=== PATIENT | female | born 1945 | race Caucasian/White ===

== ENCOUNTER 2017-12-04 16:11 | Emergency (ER) | payer SELFPAY ==
[2017-12-04 16:32] VITALS: BMI 34.0
[2017-12-04 16:37] VITALS: RESP 18; TEMP 99; O2SAT 99
--- NOTE | 2017-12-04 17:42 | ED PDOC ---
Arrival/HPI - General Chief Complaint: Eye Problem Time Seen by Provider: 12/04/17 17:10 Historian: Patient - History of Present Illness Narrative History of Present Illness (Text): 12/04/17 17:10 72 year old female visiting from [place], whose past medical history includes diabetes, diabetic retinopathy to both eyes, cataract surgery to both eyes and laser treatments, who presents to the emergency department due to sudden onset of vision loss to right eye at 15:30 today. Patient notes she saw blood dripping in the back of her eye. Patient states she cannot even see light at this time. Patient states she takes 2 eyedrops to control her eye pressures. Patient also notes taking Doxium for her eyes. Patient denies any fever, chills , chest pain, shortness of breath, nausea, vomiting, diarrhea, urinary symptoms , back pain, neck pain, headache, dizziness, or any other complaints. Time/Duration: 1-3 hours (sudden onset of loss of vision to right eye at 15:30 today) Symptom Onset: Sudden Symptom Course: Unchanged Activities at Onset: Light Past Medical History - Provider Review Nursing Documentation Reviewed: Yes - Infectious Disease Hx of Infectious Diseases: None - HEENT Hx HEENT Disorder: Yes Other/Comment: "bleeding in the eye" - Endocrine/Metabolic Hx Diabetes Mellitus Type 2: Yes - Psychiatric Hx Substance Use: No - Surgical History Other/Comment: multiple eye/laser surgery - Anesthesia Hx Anesthesia: Yes Hx Anesthesia Reactions: No Hx Malignant Hyperthermia: No Family/Social History - Physician Review Nursing Documentation Reviewed: Yes Family/Social History: No Known Family HX Smoking Status: Never Smoked Hx Alcohol Use: No Hx Substance Use: No Allergies/Home Meds Allergies/Adverse Reactions: Allergies No Known Allergies Allergy (Verified 12/04/17 16:28) Home Medications: Home Meds Medication Instructions Recorded Confirmed Home Med [Home Med] 1 cap PO DAILY 12/04/17 12/04/17 Home Med [Home Med] 40 unit SC BID 12/04/17 12/04/17 Review of Systems - Physician Review All systems were reviewed & negative as marked: Yes - Review of Systems Constitutional: Normal. absent: Fevers, Night Sweats Eyes: Vision Changes (Patient reports sudden loss of vision to right eye at 15: 30 today), Photophobia (patient notes she cannot see light at this time), Other (patient notes seeing blood dripping in back of eye). absent: Normal ENT: Normal Respiratory: Normal. absent: SOB Cardiovascular: Normal. absent: Chest Pain Gastrointestinal: Normal. absent: Diarrhea, Nausea, Vomiting Genitourinary Female: Normal. absent: Urine Output Changes Musculoskeletal: Normal. absent: Back Pain, Neck Pain Skin: Normal Neurological: Normal. absent: Headache, Dizziness Endocrine: Normal Hemo/Lymphatic: Normal Psychiatric: Normal Physical Exam Vital Signs Reviewed: Yes Vital Signs Temp Pulse Resp BP Pulse Ox 12/04/17 16:36 99 F 74 18 158/77 H 99 Temperature: Afebrile Blood Pressure: Hypertensive Pulse: Regular Respiratory Rate: Normal Appearance: Positive for: Well-Appearing, Non-Toxic Pain Distress: None Mental Status: Positive for: Alert and Oriented X 3 - Systems Exam Head: Present: Atraumatic, Normocephalic Pupils: Present: Other (visual acuity on right eye. Right eye: patient unable to see light. Left eye: grossly intact.). No: PERRL (Pupils for right eye: dilated, non-reactive to light, irregularly shaped. Pupil for left eye: reactive to light. ) Extroacular Muscles: Present: EOMI Conjunctiva: Present: Normal Mouth: Present: Moist Mucous Membranes Neck: Present: Normal Range of Motion Respiratory/Chest: Present: Clear to Auscultation, Good Air Exchange. No: Respiratory Distress, Accessory Muscle Use Cardiovascular: Present: Regular Rate and Rhythm, Normal S1, S2. No: Murmurs Abdomen: No: Tenderness, Distention, Peritoneal Signs Back: Present: Normal Inspection Upper Extremity: Present: Normal Inspection. No: Cyanosis, Edema Lower Extremity: Present: Normal Inspection. No: Edema Neurological: Present: GCS=15, CN II-XII Intact, Speech Normal Skin: Present: Warm, Dry, Normal Color. No: Rashes Psychiatric: Present: Alert, Oriented x 3, Normal Insight, Normal Concentration Medical Decision Making ED Course and Treatment: 12/04/17 17:10 Impression: 72 year old female who presents to the emergency department complaining of sudden onset of vision loss to right eye at 15:30 today. Differential Diagnosis included but are not limited to: Plan: -- Reassess and disposition Progress Notes: 12/04/17 17:[address] Flores, placed immediately. 12/04/17 18:00 Case d/w Dr. Flores, recommends to elevate the head of her bed with a couple of pillows tonight when she sleeps and he will see her in his office immediately at 9am. For now he recommends no acute interventions while the patient is in the ER. Advised to follow up with Dr. Flores in the morning without fail. Return to the emergency room at any time for any new or worsening symptoms. Patient states she fully agrees with and understands discharge instructions. States that she agrees with the plan and disposition. Verbalized and repeated discharge instructions and plan. I have given the patient opportunity to ask any additional questions. - PA / SNAPPER ON / Resident Statement MD/DO has reviewed & agrees with the documentation as recorded. MD/DO has examined the patient and agrees with the treatment plan. - Scribe Statement The provider has reviewed the documentation as recorded by the Scribe Darlene King All medical record entries made by the Emilibfran were at my direction and personally dictated by me. I have reviewed the chart and agree that the record accurately reflects my personal performance of the history, physical exam, medical decision making, and the department course for this patient. I have also personally directed, reviewed, and agree with the discharge instructions and disposition. Disposition/Present on Arrival - Present on Arrival Any Indicators Present on Arrival: No History of DVT/PE: No History of Uncontrolled Diabetes: No Urinary Catheter: No History of Decub. Ulcer: No History Surgical Site Infection Following: None - Disposition Have Diagnosis and Disposition been Completed?: Yes Diagnosis: Visual loss, right eye Disposition: HOME/ ROUTINE Disposition Time: 18:00 Patient Plan: Discharge Condition: STABLE Discharge Instructions (ExitCare): Diabetic Retinopathy Additional Instructions: Thank you for letting us take care of you today. You were treated for vision loss to R eye, likely vitreous hemorrhage. The emergency medical care you received today was directed at your acute symptoms. Sleep with your head elevated with several pillows. Return to the Emergency Department if your symptoms worsen, do not improve, or if you have any other problems. Please see Dr. Wong tomorrow morning at 9am without fail for evaluation and follow up. Bring any paperwork you were given at discharge with you along with any medications you are taking to your follow up visit. Our treatment cannot replace ongoing medical care by a primary care provider (PCP) outside of the emergency department. Thank you for allowing the [email or web address] team to be part of your care today. Referrals: FAMILY PROVIDER,NO [Primary Care Provider] - Follow up with primary Estevan Flores MD [Staff Provider] - Follow up with primary Forms: [employer] (Georgian)
[2017-12-04 18:30] VITALS: BP 149/78; PULSE 80
== END 2017-12-04 18:39 | disposition home or self-care (01) ==
LOC: ED 16:11
DX: H54.61 Unqualified visual loss, right eye, normal vision left eye (principal); E11.319 Type 2 diabetes mellitus with unspecified diabetic retinopathy without macular edema